=== PATIENT | female | born 1980 | race Caucasian/White ===

== ENCOUNTER 2021-09-17 19:56 | Emergency (ER) | payer OTHER, SELFPAY ==
[2021-09-17 20:11] VITALS: BP 121/78; PULSE 73; RESP 18; TEMP 36.6; O2SAT 98; BMI 41.1
--- NOTE | 2021-09-17 20:20 | XRR_ITS ---
PROCEDURE INFORMATION: Exam: XR Chest Exam date and time: 09/17/2021 8:20 PM Age: 41 years old Clinical indication: Pain; Angina pectoris; Additional info: Cp TECHNIQUE: Imaging protocol: XR of the chest. Views: 1 view. COMPARISON: No relevant prior studies available. FINDINGS: Lungs: Unremarkable. No consolidation. Pleural spaces: Unremarkable. No pleural effusion. No pneumothorax. Heart/Mediastinum: Unremarkable. No cardiomegaly. Bones/joints: Unremarkable. XR/XR chest 1V portable [id number] IMPRESSION: No acute findings.
--- NOTE | 2021-09-17 20:20 | ECG_ITS ---
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 Measurements Intervals [place] Rate: 76 P: 12 OR: 166 QRS: 19 QRSD: 95 T: 13 QT: 407 QTc: 459 Interpretive Statements SINUS RHYTHM No previous ECG available for comparison Electronically Signed On 09-18-2021 8:26:59 CUTCH CLEANER by Maria G Jaramillo M.D. [id number]
[2021-09-17 20:37] LABS: Basophils % 0.4 %; Eosinophils # 0.2 10^3/uL (0.0-0.8); Eosinophils % 3.5 %; Hematocrit 45.1 % (37.0-47.0); Hemoglobin 14.6 g/dL (11.5-15.3); Lymphocytes # 2.2 10^3/uL (0.8-4.8); Lymphocytes % 43.1 %; Mean Corpuscular HGB Conc 32.4 g/dL (30.0-36.0); Mean Corpuscular Hemoglobin 29.3 pg (28.0-34.0); Mean Corpuscular Volume 90.4 fl (81-99); Mean Platelet Volume 9.5 fL (7.4-10.4); Monocytes # 0.3 10^3/uL (0.2-0.9); Monocytes % 5.3 %; Neutrophils # 2.44 10^3/uL (1.8-7.7); Neutrophils % 47.5 %; Nucleated Red Blood Cells % 0 %; Platelet Count 168 10^3/cmm (130-400); Red Blood Count 4.99 10^6/uL (4.1-5.3); Red Cell Distribution Width 17.3 % (12.1-15.1); White Blood Count 5.1 10^3/uL (4.0-10.0)
[2021-09-17] MEDS: metoprolol tartrate 1 mg/1 mL SDV 5 mL 5 MG IVP (20:52)
[2021-09-17] MEDS: sodium chloride 0.9% 1,000 ML 999 ML IV (20:52)
[2021-09-17] MEDS: ondansetron 2 mg/ML SDV 2 mL 4 MG IVP (20:52)
[2021-09-17 21:30] LABS: Alanine Aminotransferase 37 U/L (0-33); Albumin Level 4.6 g/dL (3.5-5.2); Alkaline Phosphatase 114 IU/L (35-105); Anion Gap 18.3 (5-19); Aspartate Amino Transferase 43 U/L (0-32); Blood Urea Nitrogen 6 mg/dL (6-20); Carbon Dioxide 23 mmol/L (22-29); Chloride 102 mmol/L (98-107); Globulin 2.3 g/dL (1.3-4.6); Glucose 131 mg/dL (65-115); Lipase 23 U/L (13-60); NT Pro B Type Natriuretic Pept 100 pg/mL (0-125); Osmolality Calculated 287 mOsm/kg (285-295); Potassium 4.3 mmol/L (3.5-5.1); Sodium 139 mmol/L (136-145); Total Bilirubin 0.4 mg/dL (0.15-1.2); Total Protein 6.9 g/dL (6.6-8.7)
[2021-09-17 21:32] LABS: Troponin(5th) Baseline 6 ng/L (0-10)
--- NOTE | 2021-09-17 22:20 | ECG_ITS ---
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 Measurements Intervals [place] Rate: 60 P: 41 [place]: 185 QRS: 49 QRSD: 97 T: 35 QT: 441 QTc: 442 Interpretive Statements SINUS RHYTHM WITH SINUS ARRHYTHMIA Compared to ECG 09/17/2021 20:05:04 No significant changes Electronically Signed On 09-18-2021 8:42:16 BASKETBALLS AND FOOTBALLS REVERSER by Maria G Jaramillo M.D. [email or web address] medical [id number]
--- NOTE | 2021-09-17 22:50 | W.ED.CHESTPA ---
HPI - Chest Pain General: Chief Complaint: Chest Pain Stated Complaint: ruben L arm Numbness Time Seen by Provider: 09/17/21 20:23 Source: patient History of Present Illness: 41-year-old female with a history of hypertension hypercholesteremia. She presents with left-sided chest discomfort radiating into her left arm. She notes this started as palpitations which she gets at times. These palpitations worsened and developed chest discomfort thereafter. She then became nauseated and vomited. She vomited in triage as well. She does have a family history, noting that her father had bypass surgery at age 49. MD complaint: chest pain Pertinent past history: other Onset (ago): hour(s) Timing of current episode: constant Prior episodes: No Onset: during rest Pain location: substernal and left chest Pain radiation: left arm Severity: moderate Quality: heaviness and sharp Relieving factors: nothing Exacerbating factors: nothing Associated symptoms: Reports diaphoresis, dyspnea, nausea, palpitations and vomiting; Deny abdominal pain, fever(s) or syncope Treatment prior to arrival: none Risk Factors: Coronary artery disease risk factors: hyperlipidemia, hypertension and family history of CAD before age 50 Thoracic aortic dissection risk factors: none Review of Systems Const: Reports: diaphoresis; Denies: fever(s) ENMT: Denies: throat pain Card: Reports: palpitations; Denies: syncope Resp: Reports: dyspnea; Denies: productive cough or non-productive cough GI: Reports: nausea and vomiting; Denies: abdominal pain Musc: Denies: neck pain Physical Exam Const: COMMON NORMALS: patient oriented x3 GENERAL APPEARANCE: cooperative and ill appearing (mildly) HENMT: COMMON NORMALS: normocephalic HEAD & SCALP: normocephalic FACE & SINUS: normal facial exam Eye: COMMON NORMALS: Equal, round and reactive pupils present and EOMs intact bilaterally PUPIL: Yes Equal, round and reactive pupils present Chest: CHEST: No tenderness Resp: COMMON NORMALS: normal respiratory effort, No use of accessory muscles and clear to auscultation bilaterally AUSCULTATION: clear to auscultation bilaterally Cardio: COMMON NORMALS: regular rate and regular rhythm RATE: regular rate RHYTHM: regular rhythm GI: COMMON NORMALS: Normal to inspection, nondistended, normoactive bowel sounds present and Soft to palpation PALPATION: Yes Soft to palpation Extremity: COMMON NORMALS: normal to inspection Neuro: COMMON NORMALS: patient oriented x3 Course Vital Signs: Vital signs: Vital Signs Temperature 97.9 F 09/17/21 20:11 Pulse Rate 73 09/17/21 20:11 Respiratory Rate 18 09/17/21 20:11 Blood Pressure 121/78 09/17/21 20:11 Pulse Oximetry 98 09/17/21 20:11 MDM - Chest Pain Medical Decision Making 41-year-old female with palpitations and chest discomfort EKG is normal, with a normal axis, normal intervals, sinus arrhythmia with a rate of 60, no acute ST changes. Her troponin is 8. Second is pending. CBC is normal. BMP is essentially normal as well. Her lipase is normal. Liver enzymes are minimally elevated. She does not have a gallbladder. This could simply be from pravastatin. Chest x-ray is normal. On the monitor, she throws a PVC infrequently, and feels these. These seem to make her palpitations worse. She was given 5 mg of IV metoprolol, which has helped significantly with the frequency of these, and decrease her symptoms Lab Data : 09/17/21 20:25 09/17/21 20:54 Radiology Impressions Chest X-Ray 09/17/21 20:20 IMPRESSION: No acute findings. Laboratory Results WBC 5.1 10^3/uL (4.0-10.0) 09/17/21 20:25 RBC 4.99 10^6/uL (4.1-5.3) 09/17/21 20:25 Hgb 14.6 g/dL (11.5-15.3) 09/17/21 20:25 Hct 45.1 % (37.0-47.0) 09/17/21 20:25 MCV 90.4 fl (81-99) 09/17/21 20:25 MCH 29.3 pg (28.0-34.0) 09/17/21 20:25 MCHC 32.4 g/dL (30.0-36.0) 09/17/21 20:25 RDW 17.3 % (12.1-15.1) H 09/17/21 20:25 Plt Count 168 10^3/cmm (130-400) 09/17/21 20:25 MPV 9.5 fL (7.4-10.4) 09/17/21 20:25 Neut % (Auto) 47.5 % 09/17/21 20: Lymph % (Auto) 43.1 % 09/17/21 20:25 [place] % (Auto) 5.3 % 09/17/21 20: Eos % (Auto) 3.5 % 09/17/21 20:25 Baso % (Auto) 0.4 % 09/17/21 20: Neut # (Auto) 2.44 10^3/uL (1.8-7.7) 09/17/21 20: Lymph # (Auto) 2.2 10^3/uL (0.8-4.8) 09/17/21 20: [place] # (Auto) 0.3 10^3/uL (0.2-0.9) 09/17/21 20: Eos # (Auto) 0.2 10^3/uL (0.0-0.8) 09/17/21 20: Baso # (Auto) 0.0 10^3/uL (0.0-0.1) 09/17/21 20: Nucleated RBC % (auto) 0 % 09/17/21 20: Nucleated RBCs # 0.0 /100WBC 09/17/21 20:25 Sodium 139 mmol/L (136-145) 09/17/21 20:54 Potassium 4.3 mmol/L (3.5-5.1) 09/17/21 20:54 Chloride 102 mmol/L (98-107) 09/17/21 20:54 Carbon Dioxide 23 mmol/L (22-29) 09/17/21 20:54 Anion Gap 18.3 (5-19) 09/17/21 20:54 BUN 6 mg/dL (6-20) 09/17/21 20:54 Creatinine 0.5 mg/dL (0.5-0.9) 09/17/21 20:54 GFR Calculation 136.0 mL/min (90-130) H 09/17/21 20:54 Glucose 131 mg/dL (65-115) H 09/17/21 20:54 Calculated Osmolality 287 mOsm/kg (285-295) 09/17/21 20:54 Calcium 10.0 mg/dL (8.5-10.5) 09/17/21 20:54 Total Bilirubin 0.4 mg/dL (0.15-1.2) 09/17/21 20:54 AST 43 U/L (0-32) H 09/17/21 20:54 ALT 37 U/L (0-33) H 09/17/21 20:54 Alkaline Phosphatase 114 IU/L (35-105) H 09/17/21 20:54 Troponin T Baseline 6 ng/L (0-10) 09/17/21 20:54 Troponin T 120 Minute 6.49 ng/L (0-10) 09/17/21 22:41 Delta Troponin T Not Reportable 09/17/21 22:41 NT-Pro-B Natriuret Pep 100 pg/mL (0-125) 09/17/21 20:54 Total Protein 6.9 g/dL (6.6-8.7) 09/17/21 20:54 Albumin 4.6 g/dL (3.5-5.2) 09/17/21 20:54 Globulin 2.3 g/dL (1.3-4.6) 09/17/21 20:54 Lipase 23 U/L (13-60) 09/17/21 20:54 Discharge Plan Discharge Patient Disposition: Home Clinical Impression: Premature ventricular contractions (PVCs) (VPCs), Chest pain Condition: Stable Prescriptions: No Action cyclobenzaprine 10 mg tablet 10 mg PO TID PRN (Reason: Muscle Spasm) 0RF metformin 500 mg tablet 1,000 mg PO BID 0RF metoprolol succinate 50 mg tablet extended release 24 hr 50 mg PO DAILY 0RF hydrocodone-acetaminophen 5-325 mg tablet 1 tab PO Q6H PRN (Reason: Pain) 0RF trazodone 100 mg tablet 100 - 200 mg PO BEDTIME PRN (Reason: Insomnia) 0RF dicyclomine 20 mg tablet 20 mg PO QID PRN (Reason: stomach cramps) 0RF paroxetine HCl 30 mg tablet 30 mg PO DAILY 0RF pantoprazole 40 mg tablet,delayed release (DR/EC) 40 mg PO BID 0RF levothyroxine 200 mcg tablet 200 mcg PO DAILY 0RF pravastatin 20 mg tablet 20 mg PO DAILY 0RF ergocalciferol (vitamin D2) 1,250 mcg (50,000 unit) capsule 1,250 mcg PO Q7D 0RF lamotrigine 100 mg tablet 100 mg PO DAILY 0RF buspirone 15 mg tablet 15 mg PO BID 0RF aripiprazole 5 mg tablet 5 mg PO DAILY 0RF Discharge Orders: Discharge ED (Routine); Ordered 09/17/21 Ordered By: Derian Murray Discharge Diet: Advance as tolerated Discharge Activity: Increase activity as tolerated Patient Instructions: Chest Pain (ED), Premature Ventricular Contractions (ED) Activity Restrictions/Additional Instructions: Return to the ER for worsening chest discomfort, shortness of breath, vomiting, fever, any other concerning symptoms. Coding Level of Care Code ED Painter [employer]yard for Janay Fwd Exam Comprehensive
[2021-09-17 23:13] LABS: Troponin 5 2HR 6.49 ng/L (0-10)
== END 2021-09-17 23:11 | disposition home or self-care (01) ==
PROVIDERS: Emergency Provider Emergency Medicine
DX: I49.3 Ventricular premature depolarization (principal); R07.9 Chest pain, unspecified
CPT/HCPCS: 71045; 80053; 83690; 83880; 84484; 85025; 93005; 96361; 96374; 96375; 99284; J2405; J3490; J7030

== ENCOUNTER 2021-10-06 07:24 | Emergency (ER) | payer OTHER, SELFPAY ==
[2021-10-06 07:42] VITALS: BP 132/83; PULSE 85; RESP 18; O2SAT 96; BMI 41.1
--- NOTE | 2021-10-06 07:50 | ED_ITS ---
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 This was irrigated. Patient here for body fluid exposure protocol. Patient has no complaints at this time. Associated symptoms: Deny dyspnea Review of Systems Const: Denies: fever(s) or chills Eyes: Denies: change in vision, eye discomfort or eye redness Resp: Denies: dyspnea Physical Exam Const: COMMON NORMALS: no acute distress and patient oriented x3 Eye: GENERAL EYE: appearance normal, both eyes and all related structures Neuro: COMMON NORMALS: patient oriented x3 Psych: COMMON NORMALS: mental status grossly normal Course Vital Signs: Vital signs: Vital Signs Pulse Rate 85 10/06/21 07:42 Respiratory Rate 18 10/06/21 07:42 Blood Pressure 132/83 10/06/21 07:42 Pulse Oximetry 96 10/06/21 07:42 MDM - General Adult Medical Decision Making Body fluid exposure protocol Discharge Plan Discharge Patient Disposition: Home Clinical Impression: Exposure to blood or body fluid Condition: Stable Prescriptions: No Action cyclobenzaprine 10 mg tablet 10 mg PO TID PRN (Reason: Muscle Spasm) 0RF metformin 500 mg tablet 1,000 mg PO BID 0RF metoprolol succinate 50 mg tablet extended release 24 hr 50 mg PO DAILY 0RF hydrocodone-acetaminophen 5-325 mg tablet 1 tab PO Q6H PRN (Reason: Pain) 0RF trazodone 100 mg tablet 100 - 200 mg PO BEDTIME PRN (Reason: Insomnia) 0RF dicyclomine 20 mg tablet 20 mg PO QID PRN (Reason: stomach cramps) 0RF paroxetine HCl 30 mg tablet 30 mg PO DAILY 0RF pantoprazole 40 mg tablet,delayed release (DR/EC) 40 mg PO BID 0RF levothyroxine 200 mcg tablet 200 mcg PO DAILY 0RF pravastatin 20 mg tablet 20 mg PO DAILY 0RF ergocalciferol (vitamin D2) 1,250 mcg (50,000 unit) capsule 1,250 mcg PO Q7D 0RF lamotrigine 100 mg tablet 100 mg PO DAILY 0RF buspirone 15 mg tablet 15 mg PO BID 0RF aripiprazole 5 mg tablet 5 mg PO DAILY 0RF Discharge Orders: Discharge ED (Routine); Ordered 10/06/21 Ordered By: Will Biswas Discharge Diet: Usual diet Discharge Activity: Resume usual activity Patient Instructions: Blood/Body Fluid Exposure - Occupational Activity Restrictions/Additional Instructions: Follow-up with employee health nurse/occupational health. Hospital as directed. Follow blood and body exposure protocols that the hospital has instituted. Coding Level of Care Code ED Edge [employer] for Janay Richard
[2021-10-06 08:58] LABS: Hepatitis A Antibody IgM Non-Reactive (Nonreactive); Hepatitis B Core IgM Non-Reactive (Nonreactive); Hepatitis B Surface Antigen Non-Reactive (Nonreactive); Hepatitis C Virus Antibody Non-Reactive (Nonreactive)
[2021-10-06 09:00] LABS: HIV 1 & 2 Antibody Non-Reactive (Non-Reactiv); HIV 1 & 2 Antigen Non-Reactive (Non-Reactiv)
== END 2021-10-06 08:42 | disposition home or self-care (01) ==
PROVIDERS: Emergency Provider Nurse Practitioner Family
DX: Z77.21 Contact with and (suspected) exposure to potentially hazardous body fluids (principal); Z79.84 Long term (current) use of oral hypoglycemic drugs
CPT/HCPCS: 36415; 80074; 87806; 99281

== ENCOUNTER 2021-12-25 23:53 | Emergency (ER) | payer OTHER, SELFPAY ==
[2021-12-26 00:07] VITALS: BP 134/84; PULSE 78; RESP 18; TEMP 36.6; O2SAT 95; BMI 38.2
--- NOTE | 2021-12-26 00:41 | W.ED.ABDPA2 ---
HPI - Abdominal Pain General: Chief Complaint: Abdominal Pain Stated Complaint: GI Bleed Time Seen by Provider: 12/26/21 00:03 Source: patient Mode of arrival: ambulatory Limitations: no limitations History of Present Illness: 41-year-old female who states that she had some epigastric abdominal pain and nausea starting this evening and had an episode of vomiting at 1130 and states she had vomited some bright red blood. States she has had a history of an ulcer in the past. She denies any blood in her stool she continues to have some nausea denies any worsening improving factors. States her pain is a 3 out of 10. Associated Symptoms: Reports hematemesis, nausea and vomiting; Denies chills, dysuria and fever(s) Review of Systems Const: Denies: fever(s), chills, body aches or change in appetite Eyes: Denies: blurry vision or eye discomfort ENMT: Denies: throat pain or dental pain Card: Denies: chest pain Resp: Denies: dyspnea GI: Reports: abdominal pain, nausea, vomiting and hematemesis : Denies: dysuria Musc: Denies: neck pain or back pain Skin/Breast: Denies: rash Neuro: Denies: headache(s) Psych: Denies: depression Lamine/Lymph: Denies: easy bruising All/Imm: Denies: urticaria PFSH ED PFSH: Medical History (Updated 12/26/21 @ 01:45 by Emmie Daly MD) No pertinent past medical history Social History (Updated 12/26/21 @ 00:42 by Emmie Daly MD) Smoking and tobacco status: never smoked Physical Exam Const: COMMON NORMALS: no acute distress, patient oriented x3 and healthy appearing HENMT: COMMON NORMALS: normocephalic and atraumatic HEAD & SCALP: normocephalic and atraumatic Eye: COMMON NORMALS: Equal, round and reactive pupils present and EOMs intact bilaterally PUPIL: Yes Equal, round and reactive pupils present Neck/C-Spine: COMMON NORMALS: full ROM and supple Chest: COMMONS NORMALS: normal inspection of the chest and normal palpation of entire chest wall Resp: COMMON NORMALS: normal respiratory effort, No retractions, No use of accessory muscles and clear to auscultation bilaterally AUSCULTATION: clear to auscultation bilaterally Cardio: COMMON NORMALS: regular rate, regular rhythm and No murmurs present (Cardio) RATE: regular rate RHYTHM: regular rhythm GI: COMMON NORMALS: Normal to inspection, nondistended, normoactive bowel sounds present, Soft to palpation, non-tender and no masses PALPATION: Yes Soft to palpation Extremity: COMMON NORMALS: normal to inspection and full ROM Neuro: COMMON NORMALS: patient oriented x3, moves all extremities and no focal motor deficits Psych: COMMON NORMALS: mental status grossly normal, Normal thought process present and cooperative THOUGHT PROCESS: Normal thought process present Skin: COMMON NORMALS: no rashes or lesions noted and no wounds GENERAL SKIN EXAM: no rashes or lesions noted Course Vital Signs: Vital signs: Vital Signs Temperature 97.8 F 12/26/21 00:07 Pulse Rate 78 12/26/21 01:15 Respiratory Rate 15 12/26/21 01:15 Blood Pressure 104/76 12/26/21 01:40 Pulse Oximetry 95 12/26/21 01:15 MDM - Abdominal Pain Medical Decision Making Patient presents with vomiting with 1 episode of hematemesis her hemoglobin here is normal blood work here is all normal she feels much improved here after Zofran she is to follow-up with her GI in [place] likely needs repeat EGD she feels improved I feel she is stable to go home she has no signs of massive GI bleed she is return if worsening will prescribe her Zofran she understands agrees to plan. Lab Data : 12/26/21 00:45 12/26/21 00:45 Labs/Radiology: Laboratory Results WBC 6.5 10^3/uL (4.0-10.0) 12/26/21 00:45 RBC 5.03 10^6/uL (4.1-5.3) 12/26/21 00:45 Hgb 14.8 g/dL (11.5-15.3) 12/26/21 00:45 Hct 41.6 % (37.0-47.0) 12/26/21 00:45 MCV 82.7 fl (81-99) 12/26/21 00:45 MCH 29.4 pg (28.0-34.0) 12/26/21 00:45 MCHC 35.6 g/dL (30.0-36.0) 12/26/21 00:45 RDW 12.7 % (12.1-15.1) 12/26/21 00:45 Plt Count 195 10^3/cmm (130-400) 12/26/21 00:45 MPV 9.6 fL (7.4-10.4) 12/26/21 00:45 Neut % (Auto) 47.2 % 12/26/21 00:45 Lymph % (Auto) 43.1 % 12/26/21 00:45 [place] % (Auto) 5.8 % 12/26/21 00:45 Eos % (Auto) 3.2 % 12/26/21 00:45 Baso % (Auto) 0.5 % 12/26/21 00:45 Neut # (Auto) 3.08 10^3/uL (1.8-7.7) 12/26/21 00:45 Lymph # (Auto) 2.8 10^3/uL (0.8-4.8) 12/26/21 00:45 [place] # (Auto) 0.4 10^3/uL (0.2-0.9) 12/26/21 00:45 Eos # (Auto) 0.2 10^3/uL (0.0-0.8) 12/26/21 00:45 Baso # (Auto) 0.0 10^3/uL (0.0-0.1) 12/26/21 00:45 Nucleated RBC % (auto) 0 % 12/26/21 00:45 Nucleated RBCs # 0.0 /100WBC 12/26/21 00:45 PT 12.60 SECONDS (12.1-14.9) 12/26/21 00:45 INR 0.92 (0.8-1.2) 12/26/21 00:45 Sodium 140 mmol/L (136-145) 12/26/21 00:45 Potassium 3.8 mmol/L (3.5-5.1) 12/26/21 00:45 Chloride 104 mmol/L (98-107) 12/26/21 00:45 Carbon Dioxide 22 mmol/L (22-29) 12/26/21 00:45 Anion Gap 17.8 (5-19) 12/26/21 00:45 BUN 6 mg/dL (6-20) 12/26/21 00:45 Creatinine 0.5 mg/dL (0.5-0.9) 12/26/21 00:45 GFR Calculation 136.0 mL/min (90-130) H 12/26/21 00:45 Glucose 100 mg/dL (65-115) 12/26/21 00:45 Calculated Osmolality 288 mOsm/kg (285-295) 12/26/21 00:45 Calcium 9.1 mg/dL (8.5-10.5) 12/26/21 00:45 Total Bilirubin 0.3 mg/dL (0.15-1.2) 12/26/21 00:45 AST 38 U/L (0-32) H 12/26/21 00:45 ALT 35 U/L (0-33) H 12/26/21 00:45 Alkaline Phosphatase 92 IU/L (35-105) 12/26/21 00:45 Total Protein 7.0 g/dL (6.6-8.7) 12/26/21 00:45 Albumin 4.4 g/dL (3.5-5.2) 12/26/21 00:45 Globulin 2.6 g/dL (1.3-4.6) 12/26/21 00:45 Lipase 27 U/L (13-60) 12/26/21 00:45 Discharge Plan Discharge Patient Disposition: Home Clinical Impression: Hematemesis Vomiting Qualifiers: Vomiting type: unspecified Nausea presence: with nausea Qualified Code(s): R11.2 - Nausea with vomiting, unspecified Prescriptions: New ondansetron 4 mg tablet,disintegrating 4 mg PO Q6H PRN (Reason: nausea and vomiting) Qty: 14 0RF No Action cyclobenzaprine 10 mg tablet 10 mg PO TID PRN (Reason: Muscle Spasm) 0RF metformin 500 mg tablet 1,000 mg PO BID 0RF metoprolol succinate 50 mg tablet extended release 24 hr 50 mg PO DAILY 0RF hydrocodone-acetaminophen 5-325 mg tablet 1 tab PO Q6H PRN (Reason: Pain) 0RF trazodone 100 mg tablet 100 - 200 mg PO BEDTIME PRN (Reason: Insomnia) 0RF dicyclomine 20 mg tablet 20 mg PO QID PRN (Reason: stomach cramps) 0RF paroxetine HCl 30 mg tablet 30 mg PO DAILY 0RF pantoprazole 40 mg tablet,delayed release (DR/EC) 40 mg PO BID 0RF levothyroxine 200 mcg tablet 200 mcg PO DAILY 0RF pravastatin 20 mg tablet 20 mg PO DAILY 0RF ergocalciferol (vitamin D2) 1,250 mcg (50,000 unit) capsule 1,250 mcg PO Q7D 0RF lamotrigine 100 mg tablet 100 mg PO DAILY 0RF buspirone 15 mg tablet 15 mg PO BID 0RF aripiprazole 5 mg tablet 5 mg PO DAILY 0RF Discharge Orders: Discharge ED (Routine); Ordered 12/26/21 Ordered By: Emmie Daly Discharge Diet: Advance as tolerated Discharge Activity: Resume usual activity Patient Instructions: Acute Nausea and Vomiting (ED) Coding Level of Care Code ED Sterile Supply Technician for Janay Fwanjelica Exam Comprehensive
[2021-12-26] MEDS: ondansetron 2 mg/ML SDV 2 mL 4 MG IVP (00:47)
[2021-12-26] MEDS: pantoprazole 40 mg SDV 80 MG IVP (00:48)
[2021-12-26] MEDS: sodium chloride 0.9% 1,000 ML 999 ML IV (00:54)
[2021-12-26 01:01] LABS: Basophils % 0.5 %; Eosinophils # 0.2 10^3/uL (0.0-0.8); Eosinophils % 3.2 %; Hematocrit 41.6 % (37.0-47.0); Hemoglobin 14.8 g/dL (11.5-15.3); Lymphocytes # 2.8 10^3/uL (0.8-4.8); Lymphocytes % 43.1 %; Mean Corpuscular HGB Conc 35.6 g/dL (30.0-36.0); Mean Corpuscular Hemoglobin 29.4 pg (28.0-34.0); Mean Corpuscular Volume 82.7 fl (81-99); Mean Platelet Volume 9.6 fL (7.4-10.4); Monocytes # 0.4 10^3/uL (0.2-0.9); Monocytes % 5.8 %; Neutrophils # 3.08 10^3/uL (1.8-7.7); Neutrophils % 47.2 %; Nucleated Red Blood Cells % 0 %; Platelet Count 195 10^3/cmm (130-400); Red Blood Count 5.03 10^6/uL (4.1-5.3); Red Cell Distribution Width 12.7 % (12.1-15.1); White Blood Count 6.5 10^3/uL (4.0-10.0)
[2021-12-26 01:15] VITALS: BP 123/83; PULSE 78; RESP 15; O2SAT 95
[2021-12-26 01:16] LABS: INR 0.92 (0.8-1.2)
[2021-12-26 01:21] LABS: Alanine Aminotransferase 35 U/L (0-33); Albumin Level 4.4 g/dL (3.5-5.2); Alkaline Phosphatase 92 IU/L (35-105); Anion Gap 17.8 (5-19); Aspartate Amino Transferase 38 U/L (0-32); Blood Urea Nitrogen 6 mg/dL (6-20); Calcium 9.1 mg/dL (8.5-10.5); Carbon Dioxide 22 mmol/L (22-29); Chloride 104 mmol/L (98-107); Globulin 2.6 g/dL (1.3-4.6); Glucose 100 mg/dL (65-115); Lipase 27 U/L (13-60); Osmolality Calculated 288 mOsm/kg (285-295); Potassium 3.8 mmol/L (3.5-5.1); Sodium 140 mmol/L (136-145); Total Bilirubin 0.3 mg/dL (0.15-1.2)
[2021-12-26 01:40] VITALS: BP 104/76
[2021-12-26 01:54] VITALS: BP 104/76
== END 2021-12-26 01:56 | disposition home or self-care (01) ==
PROVIDERS: Emergency Provider Emergency Medicine
DX: K92.0 Hematemesis (principal)
CPT/HCPCS: 80053; 83690; 85025; 85610; 96361; 96374; 96375; 99284; C9113; J2405; J7030